=== PATIENT | female | born 1965 | race Asian ===

== ENCOUNTER → 2020-06-25 | Outpatient (CLI) | payer OTHER | END | disposition home or self-care (01) | LOC: MSR 15:35 | PROVIDERS: ATTEND Internal Medicine | DX: Z02.1 Encounter for pre-employment examination (principal); R76.11 Nonspecific reaction to tuberculin skin test without active tuberculosis | CPT/HCPCS: 86706; 86735; 86762; 86765; 86787; 36415-L1; 36415-TC; 71045-TC ==